=== PATIENT | male | born 1980 | race Caucasian/White ===

== ENCOUNTER 2017-02-03 14:09 | Emergency (ER) ==
--- NOTE | 2017-02-03 15:27 | PROVIDER DOCUMENTATION ---
HPI-General Adult - General Chief Complaint: Dizziness Stated Complaint: HEADACHE/DIZZINESS Time Seen by Provider: 02/03/17 15:14 Source: patient Allergies/Adverse Reactions: Patient Allergies Allergy/AdvReac Type Severity Reaction Status Date / Time No Known Allergies Allergy Verified 02/03/17 14:21 Home Medications: Home Medication List Medication Instructions Recorded Confirmed Last Taken Type Omeprazole [Prilosec] 20 mg PO DAILY@0700 09/16/15 02/03/17 09/15/15 07:00 History Meclizine [Antivert] 12.5 mg PO TID #30 tablet 02/03/17 Unknown Rx - History of Present Illness -Gen Adult Nature of Presenting Problems: 36 y/o WM c/o headache and dizziness over the past 2 weeks. Dizziness occurs when he changes positions, like sitting to standing, etc. Had also experiences it with turnign over in bed. Headache associated with sinus drainage and improves when he takes the [place]. Denies changes in hearing or vision. denies chest pain or sob. Never had syncopal episode. Denies drug use. Review of Systems - Adult - REVIEW OF SYSTEMS - ADULT Constitutional: reports: no symptoms reported. denies: chills, fever, fatique Eyes: reports: no symptoms reported. denies: decreased vision, blurred vision, double vision, eye pain Ears, Nose, Mouth & Throat: reports: see HPI, sinus problem. denies: ear pain, nose pain, throat pain Cardiovascular: reports: no symptoms reported. denies: chest pain, irregular heart rate, palpitations Respiratory: reports: no symptoms reported. denies: cough, shortness of breath , wheezing Gastrointestinal: reports: no symptoms reported. denies: abdominal pain, diarrhea, nausea, vomiting Genitourinary: reports: no symptoms reported. denies: dysuria, discharge, frequency, incontinence Musculoskeletal: reports: no symptoms reported. denies: back pain Integumentary: reports: no symptoms reported. denies: rash Neurological: reports: see HPI, dizziness/vertigo, headache/migraines. denies: ataxia, loss of balance, numbness Psychiatric: reports: no symptoms reported Endocrine: reports: no symptoms reported Hematologic/Lymphatic: reports: no symptoms reported Allergic/Immunologic: reports: no symptoms reported All Other Systems: Reviewed and Negative Past History - Adult - PAST MEDICAL HISTORY-ADULT Review of Records: reports: Old Records Reviewed, Nursing Assessment Review, Medications Reviewed Major Childhood Illnesses: reports: denies history Cardiovascular: reports: denies history Respiratory: reports: denies history Gastrointestinal: reports: denies history Genitourinary: reports: denies history Musculoskeletal: reports: denies history Neurological: reports: denies history Psychiatric: reports: denies history Endocrine/Immune: reports: denies history Other Conditions: reports: denies history - FAMILY HISTORY Family History: reviewed, not pertinent Physical Exam-General - PHYSICAL EXAM-ADULT Initial Vital Signs Reviewed: Yes - CONSTITUTIONAL General Appearance: appears well, alert, no apparent distress - EYES Eyes: PERRL/EOMI, pink conjunctivae - HEAD, EARS, NOSE, MOUTH & THROAT HENMT: normocephalic/atraumatic, moist mucous membranes, normal ENT inspection, TMs normal, pharynx normal - NECK Neck: non-tender, full range of motion, supple, normal inspection. negative: lymphadenopathy - RESPIRATORY Respiratory: chest non-tender, lungs clear, normal breath sounds, no pleuratic chest pain, no respiratory distress, no accessory muscle use. negative: respiratory distress, decreased breath sounds, accessory muscle use, crackles, rales, rhonchi, wheezing - CARDIOVASCULAR Cardiovascular: normal peripheral pulses, regular rate, rhythm - MUSCULOSKELETAL Back Exam: normal inspection Extremity: normal range of motion, normal gait Peripheral Pulses: radial (R): 2+, radial (L): 2+ - SKIN Integumentary: normal color, normal turgor, warm/dry - NEUROLOGIC Neurologic: grossly normal, no motor/sensory deficits - PSYCHIATRIC Psych/Mental Status: normal mood/affect, normal thought content, normal thought process, oriented x 3 Progress - PLAN OF CARE/RESULTS Progress/Plan/Lab Results: Vital Signs Temp Pulse Pulse Pulse Pulse Resp BP 02/03/17 16:00 58 L 61 52 L 02/03/17 14:18 98.1 F 60 16 126/86 BP BP BP Pulse Ox 02/03/17 16:00 131/91 132/91 130/85 02/03/17 14:18 99 No Known Allergies Allergy (Verified 02/03/17 14:21) Omeprazole [Prilosec] 20 mg PO DAILY@0700 09/16/15 Laboratory 02/03/17 02/03/17 15:38 15:38 WBC 7.26 RBC 4.92 Hgb 15.7 Hct 43.3 MCV 88.0 MCH 31.9 H MCHC 36.3 RDW Std Deviation 12.0 Plt Count 183 MPV 9.8 Immature Gran % (Auto) 0.3 Neut % (Auto) 62.1 Lymph % (Auto) 24.5 [place] % (Auto) 10.9 H Eos % (Auto) 1.8 Baso % (Auto) 0.4 Immature Gran # (Auto) 0.02 Neut # (Auto) 4.51 Lymph # (Auto) 1.78 [place] # (Auto) 0.79 H Eos # (Auto) 0.13 Baso # (Auto) 0.03 Sodium 140 Potassium 3.8 Chloride 104 Carbon Dioxide 27 Anion Gap 9 BUN 11 Creatinine 1.0 Estimated GFR/1.73 m2 > 60 BUN/Creatinine Ratio 11 Glucose 96 Calculated Osmolality 279 Calcium 9.1 Total Bilirubin 0.50 AST 23 ALT 28 Alkaline Phosphatase 54 Total Protein 7.1 Albumin 4.5 Globulin 3.0 Albumin/Globulin Ratio 2.0 Orders Category Date Time Status ED: Orthostatic Vital Signs (E as directed Care 02/03/17 15:18 Active SINUSES [RAD] Stat Exams 02/03/17 15:18 Draft CBC WITH ELECTRONIC DIFF [HEME] Stat Lab 02/03/17 15:38 Completed CMP [COMPREHENSIVE METABOLIC PANEL] [CHEM] Stat Lab 02/03/17 15:38 Completed - XRAY 1 XRAY Study: other (sinus) Impression: Normal (NAD per Dr. Carlos, radiology) Departure - Departure Time of Disposition Order: 16:18 DIAGNOSIS: Vertigo Disposition: HOME 01 Certified Medical Emergency: Emergent Condition: Stable Additional Instructions: Follow up with Dr. Wiggins, ENT ED Follow Up Instructions: You have been treated by a care provider in the Emergency Department. These instructions are being provided to you so you can have an understanding of how to care for yourself upon discharge. Upon discharge from the Emergency Department, you are responsible for making arrangements for follow-up care by a physician of your choice. Take all prescribed medications as directed. Return to the Emergency Department immediately for any new or worsening symptoms. You may call the Physician Referral phone number at [phone] to obtain a list of Physicians who are taking new patients. Prescriptions: Meclizine [Antivert] 12.5 mg PO TID #30 tablet Referrals: None,PCP [Primary Care Provider] - Oleg Wiggins MD [STAFF PHYSICIAN] - Attestation - Physician/ SAÚL Attestation Patient care was provided by Advanced Practice Provider:: Yes Advanced Practice Provider:: Kavya Gordillo Advanced Practice Provider documentation review:: The Mid-level provider documentation, treatment plan and medical decision making was reviewed by the physician who agrees with all treatment and medical decision making by the MLP.
[2017-02-03 15:41] LABS: MANUAL DIFF NEEDED? NO
[2017-02-03 15:42] LABS: BASO% 0.4 % (0.0-0.8); EOS# 0.13 X1000 (0.0-0.7); EOS% 1.8 % (0.0-10.0); HEMATOCRIT 43.3 % (42.0-52.0); HEMOGLOBIN 15.7 g/dL (14.0-18.0); IMM GRAN# 0.02 X1000 (0.0-0.04); IMM GRAN% 0.3 % (0.0-0.5); LYMPH# 1.78 X1000 (1.2-3.4); LYMPH% 24.5 % (20.5-51.1); MCH 31.9 PG (27-31); MCHC 36.3 g/dL (33-37); MONO# 0.79 X1000 (0.11-0.59); MONO% 10.9 % (1.7-9.3); MPV 9.8 FL (7.4-10.4); NEUT% 62.1 % (42.2-75.2); PLT 183 X1000 (130-400); RBC 4.92 XMIL (4.7-6.1)
--- NOTE | 2017-02-03 15:52 | Diag Imaging Result Document ---
PROCEDURE NAME: SINUSES - 02/03/2017 SINUS SERIES 3 VIEWS: FINDINGS: There is no evidence of air fluid level. The paranasal sinuses are apparently clear, and there is no evidence of acute bony disease. The temporal bones are well pneumatized. IMPRESSION: No evidence of acute disease.
[2017-02-03 16:07] VITALS: BP 130/85
[2017-02-03 16:07] LABS: AGAP 9; ALBUMIN 4.5 g/dL (3.5-5.0); ALKALINE PHOSPHATASE 54 U/L (32-122); BUN 11 mg/dL (8-22); CALCIUM 9.1 mg/dL (8.8-10.2); CHLORIDE 104 mmol/L (98-107); COSMO 279; GOT 23 U/L (10-34); GPT 28 U/L (10-44); POTASSIUM 3.8 mmol/L (3.5-5.1); SODIUM 140 mmol/L (136-145); TCO2 27 mmol/L (25-35); TOTAL PROTEIN 7.1 g/dL (6.3-8.3)
== END 2017-02-03 16:27 | disposition home or self-care (01) ==
LOC: P.ED 14:09
DX: R42 Dizziness and giddiness (principal); R51 Headache
CPT/HCPCS: 70220; 80053; 82948; 85025